=== PATIENT | female | born 1995 | race Native Hawaiian/Other Pacific Islander ===

== ENCOUNTER 2017-12-11 16:57 | Emergency (ER) | payer OTHER ==
[2017-12-11 17:14] VITALS: BP 125/67; TEMP 98.7
[2017-12-11] MEDS ORDERED: CEPHALEXIN500 M1 PO (18:11)
[2017-12-11 18:35] VITALS: PULSE 76
== END 2017-12-11 18:35 | disposition home or self-care (01) ==
LOC: COL.ER 16:57
DX: M79.602 Pain in left arm (principal)

== ENCOUNTER 2017-12-27 12:46 | Emergency (ER) | payer OTHER ==
[~2017-12-27] VITALS: Ht 162.6 cm; Wt 72.7 kg
[~2017-12-27 12:46] MED LIST: CEPHALEXIN500 M1 PO
[2017-12-27 12:50] VITALS: BP 128/90; TEMP 98.4
[2017-12-27 13:39] VITALS: PULSE 82
== END 2017-12-27 13:44 | disposition home or self-care (01) ==
LOC: COL.ER 12:46
DX: L02.414 Cutaneous abscess of left upper limb (principal)

== ENCOUNTER → 2018-05-28 | Outpatient (CLI) | payer OTHER | LOC: COL.RAD 11:57 | DX: R22.9 Localized swelling, mass and lump, unspecified (principal) ==